=== PATIENT | male | born 1960 | race American Indian/Alaskan Native ===

== ENCOUNTER 2019-10-04 01:20 | Emergency (ER) | payer SELFPAY ==
[2019-10-04 03:35] LABS: Bilirubin,Urine NEG (Negative); Blood,Urine NEG (Negative); Color,Urine Yellow (Yellow); Mucus,Urine FEW /HPF; Protein,Urine <15 mg/dL mg/dL (Negative); Urobilinogen,Urine < 2.0 mg/dL (<2.0); WBC,Urine < 1.0 /HPF (0.0-6.0)
[2019-10-04 03:43] LABS: Amphetamine Screen,Urine PRESUMPTIVE NEGATIVE; Benzodiazepines Screen,Urine PRESUMPTIVE NEGATIVE; Cannabinoid Screen,Urine PRESUMPTIVE NEGATIVE; Methadone Screen,Urine PRESUMPTIVE NEGATIVE; Opiate Screen,Urine PRESUMPTIVE NEGATIVE
[2019-10-04 04:04] LABS: Cocaine Screen,Urine PRESUMPTIVE POSITIVE
[2019-10-04 04:15] LABS: Basophils # (Auto) 0.1 K/mm3 (0.0-0.1); Basophils % (Auto) 0.5 % (0.0-1.8); Eosinophils % (Auto) 0.1 % (0.0-4.3); Hematocrit 42.5 % (35.5-45.6); Hemoglobin 13.7 gm/dl (11.8-15.2); Lymphocytes # (Auto) 2.4 K/mm3 (1.2-5.4); Lymphocytes % (Auto) 21.9 % (13.4-35.0); Mean Corpuscular HGB Conc 32 % (32-34); Mean Corpuscular Volume 85 fl (84-94); Monocytes # (Auto) 0.7 K/mm3 (0.0-0.8); Monocytes % (Auto) 6.3 % (0.0-7.3); Platelet Count 273 K/mm3 (140-440); Red Blood Count 5.03 M/mm3 (3.65-5.03); Red Cell Distribution Width 15.1 % (13.2-15.2)
[2019-10-04 04:24] LABS: BUN/Creatinine Ratio 12; Blood Urea Nitrogen 12 mg/dL (9-20); Calcium 9.5 mg/dL (8.4-10.2); Hemolysis Index 12
--- NOTE | 2019-10-04 07:20 | Emergency Department Report ---
ED Psych HPI - General Chief Complaint: Medical Clearance Stated Complaint: MH EVALUATION Time Seen by Provider: 10/04/19 07:04 Source: patient Mode of arrival: Ambulatory - History of Present Illness Initial Comments: Patient is 59 years old male with history of bipolar disorder. Patient presented to the ER stating that he has been very depressed and having suicidal thoughts. Patient stated that he is going through a lot of stress since his is on oxygen at home and he is a caregiver for her. Patient stated also he is a many year at [employer]. Patient stated that he tried cocaine for the last 3 days. Patient stated that he is really thinking about killing himself cause of all the stress that he have now. Patient denied any homicidal ideation. Patient stated that he is hearing voices also asked him to kill himself. No visual hallucination. Patient placed on hold until assessed by mental health. MD Complaint: suicidal ideation, feels depressed -: days(s) (3) Associated Psychiatric Symptoms: depression, suicidal ideation, auditory hallucinations History of same: Yes Quality: constant Improves With: none Worsens With: none Context: recent alcohol abuse, recent drug abuse Associated Symptoms: denies other symptoms Treatments Prior to Arrival: none If Self Harm: admits thoughts of - Related Data Home Medications Medication Instructions Recorded Confirmed Last Taken No Known Home Medications [No 10/04/19 10/04/19 Unknown Reported Home Medications] Allergies Allergy/AdvReac Type Severity Reaction Status Date / Time No Known Allergies Allergy Unverified 10/04/19 02:35 ED Review of Systems ROS: Stated complaint: MH EVALUATION Other details as noted in HPI Comment: All other systems reviewed and negative Constitutional: denies: chills, fever Respiratory: denies: cough, shortness of breath, SOB with exertion Cardiovascular: denies: chest pain, palpitations Gastrointestinal: denies: abdominal pain, nausea, vomiting Musculoskeletal: denies: back pain Neurological: denies: headache, weakness, numbness, paresthesias, confusion, abnormal gait Psychiatric: depression, auditory hallucinations, suicidal thoughts. denies: visual hallucinations, homicidal thoughts ED Past Medical Hx - Past Medical History Previous Medical History?: No - Surgical History Past Surgical History?: No - Social History Smoking Status: Current Every Day Smoker Substance Use Type: Alcohol, Cocaine - Medications Home Medications: Home Medications Medication Instructions Recorded Confirmed Last Taken Type No Known Home Medications [No 10/04/19 10/04/19 Unknown History Reported Home Medications] ED Physical Exam - General Limitations: No Limitations General appearance: alert, in no apparent distress - Head Head exam: Present: atraumatic, normocephalic, normal inspection - Eye Eye exam: Present: normal appearance - ENT ENT exam: Present: normal exam, normal orophraynx, mucous membranes moist - Neck Neck exam: Present: normal inspection, full ROM. Absent: tenderness, meningi smus, lymphadenopathy, thyromegaly - Respiratory Respiratory exam: Present: normal lung sounds bilaterally - Cardiovascular Cardiovascular Exam: Present: regular rate, normal rhythm, normal heart sounds - GI/Abdominal GI/Abdominal exam: Present: soft, normal bowel sounds. Absent: distended, tenderness, guarding, rebound, rigid, organomegaly, mass, bruit, pulsatile mass, hernia - Extremities Exam Extremities exam: Present: normal inspection, full ROM, normal capillary refill. Absent: pedal edema, calf tenderness - Back Exam Back exam: Present: normal inspection, full ROM. Absent: tenderness, CVA tenderness (R), CVA tenderness (L), muscle spasm, paraspinal tenderness - Neurological Exam Neurological exam: Present: alert, oriented X3, CN II-XII intact, normal gait, reflexes normal - Psychiatric Psychiatric exam: Present: depressed, suicidal ideation. Absent: agitated, anxious, flat affect, manic, homicidal ideation - Skin Skin exam: Present: warm, intact, normal color ED Course Vital Signs 10/04/19 10/04/19 10/04/19 01:42 05:32 08:31 Temperature 97.4 F L 98.3 F Pulse Rate 109 H 92 H Respiratory 20 15 Rate Blood Pressure 116/81 Blood Pressure 113/80 [Left] O2 Sat by Pulse 96 99 100 Oximetry ED Medical Decision Making - Lab Data Result diagrams: 10/04/19 03:45 10/04/19 03:45 - Medical Decision Making Patient is 59 years old male with history of bipolar disorder. Patient presented to the ER stating that he has been very depressed and having suicidal thoughts. Patient stated that he is going through a lot of stress since his is on oxygen at home and he is a caregiver for her. Patient stated also he is a many year at [employer]. Patient stated that he tried cocaine for the last 3 days. Patient stated that he is really thinking about killing himself cause of all the stress that he have now. Patient denied any homicidal ideation. Patient stated that he is hearing voices also asked him to kill himself. No visual hallucination. Patient placed on hold until assessed by mental health. Patient has been assessed by our mental health team. Patient now is denying any suicidal ideation. Our psychiatric team advised that patient can be discharged and to follow up with his psychiatric doctor in the next 2-3 days. Patient given a proper referral. Critical care attestation.: If time is entered above; I have spent that time in minutes in the direct care of this critically ill patient, excluding procedure time. ED Disposition Clinical Impression: Suicidal ideation, Cocaine abuse, Depressed Disposition: DC-01 TO HOME OR SELFCARE Is pt being admited?: No Condition: Stable Instructions: Cocaine Abuse (ED), Suicide Prevention for Adults (ED) Referrals: PRIMARY CARE, [Primary Care Provider] - 3-5 Days
[2019-10-04 11:52] VITALS: BP 132/81
== END 2019-10-04 11:51 | disposition home or self-care (01) ==
LOC: ED 01:20
DX: F31.9 Bipolar disorder, unspecified (principal); F32.9 Major depressive disorder, single episode, unspecified; R45.851 Suicidal ideations; F14.10 Cocaine abuse, uncomplicated; R44.0 Auditory hallucinations; F17.200 Nicotine dependence, unspecified, uncomplicated
CPT/HCPCS: 36415; 80048; 80307; 80320; 81001; 85025; G0480

== ENCOUNTER 2021-01-28 21:40 | Inpatient (IN) | payer OTHER, SELFPAY ==
[2021-01-28] MEDS ORDERED: SODIUM CHLORIDE 0.9% 1000 ML 1,000 ML IV ONE (22:14)
[2021-01-28] MEDS ORDERED: ONDANSETRON 4 MG/2 ML INJ IV ONE (22:14)
--- NOTE | 2021-01-28 22:18 | Emergency Department Report ---
HPI - General Chief Complaint: Abdominal Pain Time Seen by Provider: 01/28/21 22:06 - HPI HPI: This is a 60-year-old male who presents to the emergency department via EMS from home with complaint of some abdominal pain, nausea and vomiting and the patient is positive for COVID-19. He was diagnosed with COVID-19 about 6 days ago. He says that his current symptoms have been going on for the past 3 to 4 days. Once the patient arrived to the emergency department he began vomiting and then appears to have passed out onto the ground. At the time of my examination, just after this occurred, the patient is awake, alert and oriented. After having an episode of passing out, the patient said that he was having some generalized chest discomfort on top of the aforementioned symptoms. Patient denies any past medical history. It appears that he has been here previously for psychiatric issues and had some history of cocaine abuse at that time. Patient denies any current alcohol use or illicit drug use. He is a daily tobacco smoker although he says he only smokes 2 to 3 cigarettes/day. He has not taken anything for his current symptoms prior to presentation today. No recent travel. He says that his is currently admitted to this hospital for a COVID-19 infection. ED Past Medical Hx - Social History Smoking Status: Current Every Day Smoker Substance Use Type: Alcohol, Cocaine - Medications Home Medications: Home Medications Medication Instructions Recorded Confirmed Last Taken Type No Known Home Medications [No 10/04/19 10/04/19 Unknown History Reported Home Medications] ED Review of Systems ROS: Stated complaint: NAUSEA Other details as noted in HPI Comment: All other systems reviewed and negative Constitutional: weakness. denies: chills Eyes: denies: eye pain, vision change ENT: denies: ear pain, throat pain Respiratory: denies: cough, wheezing Cardiovascular: chest pain, syncope Gastrointestinal: abdominal pain, nausea, vomiting Genitourinary: denies: dysuria, discharge Musculoskeletal: myalgia. denies: joint swelling Skin: denies: rash, lesions Neurological: denies: numbness, paresthesias Physical Exam - Physical Exam Physical Exam: GENERAL: The patient is well-developed well-nourished. HENT: Normocephalic. Atraumatic. Patient has moist mucous membranes. EYES: Extraocular motions are intact. Pupils equal reactive to light bilaterally. NECK: Supple. Trachea is midline. CHEST/LUNGS: Rhonchi heard bilaterally. There is some tachypnea but no accessory muscle use. HEART/CARDIOVASCULAR: Regular. There is no tachycardia. There is no murmur. ABDOMEN: Abdomen is soft. Generalized abdominal tenderness to palpation. No guarding. Patient has normal bowel sounds. There is no abdominal distention. SKIN: Skin is warm and dry. NEURO: The patient is awake, alert, and oriented. The patient is cooperative. The patient has no focal neurologic deficits. Normal speech. MUSCULOSKELETAL: There is no tenderness or deformity. There is no limitation range of motion. ED Medical Decision Making - Lab Data Result diagrams: 01/28/21 22:26 01/28/21 22:26 Lab Results 01/28/21 01/28/21 01/28/21 Range/Units 22:26 22:26 22:26 WBC 6.7 (4.5-11.0) K/mm3 RBC 5.66 H (3.65-5.03) M/mm3 Hgb 15.3 H (11.8-15.2) gm/dl Hct 46.5 H (35.5-45.6) % MCV 82 L (84-94) fl MCH 27 L (28-32) pg MCHC 33 (32-34) % RDW 15.1 (13.2-15.2) % Plt Count 241 (140-440) K/mm3 Lymph % (Auto) 14.6 (13.4-35.0) % Canadian % (Auto) 9.1 H (0.0-7.3) % Eos % (Auto) 0.0 (0.0-4.3) % Baso % (Auto) 0.1 (0.0-1.8) % Lymph # (Auto) 1.0 L (1.2-5.4) K/mm3 Canadian # (Auto) 0.6 (0.0-0.8) K/mm3 Eos # (Auto) 0.0 (0.0-0.4) K/mm3 Baso # (Auto) 0.0 (0.0-0.1) K/mm3 Seg Neutrophils % 76.2 H (40.0-70.0) % Seg Neutrophils # 5.1 (1.8-7.7) K/mm3 D-Dimer 468.53 H (0-234) ng/mlDDU Sodium 138 (137-145) mmol/L Potassium 3.9 (3.6-5.0) mmol/L Chloride 97.1 L (98-107) mmol/L Carbon Dioxide 31 H (22-30) mmol/L Anion Gap 14 mmol/L BUN 11 (9-20) mg/dL Creatinine 1.1 (0.8-1.3) mg/dL Estimated GFR > 60 ml/min BUN/Creatinine Ratio 10 % Glucose 98 (75-100) mg/dL Calcium 8.6 (8.4-10.2) mg/dL Ferritin (30.0-300.0) ng/mL Total Bilirubin 0.30 (0.1-1.2) mg/dL AST 24 (5-40) units/L ALT 23 (7-56) units/L Alkaline Phosphatase 84 (35-129) units/L Lactate Dehydrogenase (91-180) units/L Troponin T < 0.010 (0.00-0.029) ng/mL C-Reactive Protein (0.00-1.30) mg/dL Total Protein 7.1 (6.3-8.2) g/dL Albumin 3.8 L (3.9-5) g/dL Albumin/Globulin Ratio 1.2 % Lipase 14 (13-60) units/L Urine Color (Yellow) Urine Turbidity (Clear) Urine pH (5.0-7.0) Ur Specific Peyton (1.003-1.030) Urine Protein (Negative) mg/dL Urine Glucose (UA) (Negative) mg/dL Urine Ketones (Negative) mg/dL Urine Blood (Negative) Urine Nitrite (Negative) Urine Bilirubin (Negative) Urine Urobilinogen (<2.0) mg/dL Ur Leukocyte Esterase (Negative) Urine WBC (Auto) (0.0-6.0) /HPF Urine RBC (Auto) (0.0-6.0) /HPF Urine Mucus /HPF 01/29/21 01/29/21 01/29/21 Range/Units 00:09 00:09 00:09 WBC (4.5-11.0) K/mm3 RBC (3.65-5.03) M/mm3 Hgb (11.8-15.2) gm/dl Hct (35.5-45.6) % MCV (84-94) fl MCH (28-32) pg MCHC (32-34) % RDW (13.2-15.2) % Plt Count (140-440) K/mm3 Lymph % (Auto) (13.4-35.0) % Canadian % (Auto) (0.0-7.3) % Eos % (Auto) (0.0-4.3) % Baso % (Auto) (0.0-1.8) % Lymph # (Auto) (1.2-5.4) K/mm3 Canadian # (Auto) (0.0-0.8) K/mm3 Eos # (Auto) (0.0-0.4) K/mm3 Baso # (Auto) (0.0-0.1) K/mm3 Seg Neutrophils % (40.0-70.0) % Seg Neutrophils # (1.8-7.7) K/mm3 D-Dimer 135.00 (0-234) ng/mlDDU Sodium (137-145) mmol/L Potassium (3.6-5.0) mmol/L Chloride (98-107) mmol/L Carbon Dioxide (22-30) mmol/L Anion Gap mmol/L BUN (9-20) mg/dL Creatinine (0.8-1.3) mg/dL Estimated GFR ml/min BUN/Creatinine Ratio % Glucose (75-100) mg/dL Calcium (8.4-10.2) mg/dL Ferritin 809.3 H (30.0-300.0) ng/mL Total Bilirubin (0.1-1.2) mg/dL AST (5-40) units/L ALT (7-56) units/L Alkaline Phosphatase (35-129) units/L Lactate Dehydrogenase 351 H (91-180) units/L Troponin T (0.00-0.029) ng/mL C-Reactive Protein 3.40 H (0.00-1.30) mg/dL Total Protein (6.3-8.2) g/dL Albumin (3.9-5) g/dL Albumin/Globulin Ratio % Lipase (13-60) units/L Urine Color (Yellow) Urine Turbidity (Clear) Urine pH (5.0-7.0) Ur Specific Peyton (1.003-1.030) Urine Protein (Negative) mg/dL Urine Glucose (UA) (Negative) mg/dL Urine Ketones (Negative) mg/dL Urine Blood (Negative) Urine Nitrite (Negative) Urine Bilirubin (Negative) Urine Urobilinogen (<2.0) mg/dL Ur Leukocyte Esterase (Negative) Urine WBC (Auto) (0.0-6.0) /HPF Urine RBC (Auto) (0.0-6.0) /HPF Urine Mucus /HPF 01/29/21 01/29/21 Range/Units 01:15 01:30 WBC (4.5-11.0) K/mm3 RBC (3.65-5.03) M/mm3 Hgb (11.8-15.2) gm/dl Hct (35.5-45.6) % MCV (84-94) fl MCH (28-32) pg MCHC (32-34) % RDW (13.2-15.2) % Plt Count (140-440) K/mm3 Lymph % (Auto) (13.4-35.0) % Canadian % (Auto) (0.0-7.3) % Eos % (Auto) (0.0-4.3) % Baso % (Auto) (0.0-1.8) % Lymph # (Auto) (1.2-5.4) K/mm3 Canadian # (Auto) (0.0-0.8) K/mm3 Eos # (Auto) (0.0-0.4) K/mm3 Baso # (Auto) (0.0-0.1) K/mm3 Seg Neutrophils % (40.0-70.0) % Seg Neutrophils # (1.8-7.7) K/mm3 D-Dimer (0-234) ng/mlDDU Sodium (137-145) mmol/L Potassium (3.6-5.0) mmol/L Chloride (98-107) mmol/L Carbon Dioxide (22-30) mmol/L Anion Gap mmol/L BUN (9-20) mg/dL Creatinine (0.8-1.3) mg/dL Estimated GFR ml/min BUN/Creatinine Ratio % Glucose (75-100) mg/dL Calcium (8.4-10.2) mg/dL Ferritin (30.0-300.0) ng/mL Total Bilirubin (0.1-1.2) mg/dL AST (5-40) units/L ALT (7-56) units/L Alkaline Phosphatase (35-129) units/L Lactate Dehydrogenase (91-180) units/L Troponin T < 0.010 (0.00-0.029) ng/mL C-Reactive Protein (0.00-1.30) mg/dL Total Protein (6.3-8.2) g/dL Albumin (3.9-5) g/dL Albumin/Globulin Ratio % Lipase (13-60) units/L Urine Color Yellow (Yellow) Urine Turbidity Clear (Clear) Urine pH 6.0 (5.0-7.0) Ur Specific Peyton 1.034 H (1.003-1.030) Urine Protein 30 mg/dl (Negative) mg/dL Urine Glucose (UA) Neg (Negative) mg/dL Urine Ketones Tr (Negative) mg/dL Urine Blood Neg (Negative) Urine Nitrite Neg (Negative) Urine Bilirubin Neg (Negative) Urine Urobilinogen < 2.0 (<2.0) mg/dL Ur Leukocyte Esterase Neg (Negative) Urine WBC (Auto) 1.0 (0.0-6.0) /HPF Urine RBC (Auto) 1.0 (0.0-6.0) /HPF Urine Mucus 2+ /HPF - EKG Data -: EKG Interpreted by [facility] EKG shows normal: sinus rhythm, axis, intervals, QRS complexes, ST-T waves Rate: normal - EKG Data When compared to previous EKG there are: previous EKG unavailable Interpretation: normal EKG - Radiology Data Radiology results: report reviewed ACUTE ABDOMEN SERIES INDICATION / CLINICAL INFORMATION: Abd pain. COMPARISON: None available. FINDINGS: Bowel gas pattern is nonspecific, not indicative of obstruction. Gas-filled and very mildly distended small bowel suggests some degree of ileus. No free air. Accompanying chest radiograph shows patchy parenchymal disease in both lungs, very suggestive of Covid pneumonia. CT abdomen pelvis w con INDICATION: Pt complains of "Generalized" abd pain, abnormal X-ray.. TECHNIQUE: All CT scans at this location are performed using CT dose reduction for ALARA by means of automated exposure control. COMPARISON: None available. FINDINGS: Viral pneumonia in both lung bases. Liver, gallbladder, spleen, pancreas, kidneys and adrenals are negative. Abdominal aorta is normal in size. No adenopathy. Incidental uncomplicated umbilical hernia. Pelvis Normal appendix. Sigmoid diverticulosis with no evidence of dive rticulitis. Urinary bladder and distal ureters are negative. Degenerative changes in the lower lumbar spine, but no acute skeletal lesions. IMPRESSION: 1. No acute abnormality in the abdomen/pelvis. CT angio chest INDICATION: Patient complains of chest pain, elevated D-dimer. TECHNIQUE: All CT scans at this location are performed using CT dose reduction for ALARA by means of automated exposure control. 3 plane MIP and 3-D reconstructions were produced. COMPARISON: None available. FINDINGS: Mediastinum, eddie and axillae are negative. Patchy parenchymal disease is demonstrated throughout both lungs, suggesting viral pneumonia. No pleural fluid. No evidence of pulmonary embolus. IMPRESSION: 1. Moderate viral pneumonia. 2. Negative for pulmonary embolus. - Medical Decision Making This patient presents to the emergency department with a complaint of abdominal pain, nausea and vomiting. Upon arrival he had what seems to be a vasovagal syncopal episode while vomiting. However, after that the patient started complaining of chest pain and shortness of breath. He was found to be positive for COVID-19 about 6 days ago. Abdominal x-ray shows some nonspecific bowel gas. Chest x-ray shows patchy bilateral infiltrates consistent with a viral or atypical pneumonia. Patient had a CT angiography of the chest secondary to elevated D-dimer level that once again shows viral pneumonia without evidence of pulmonary embolism. CT of the abdomen and pelvis with IV contrast does not show any acute process. The patient's labs are mostly consistent with a COVID-19 infection. There are elevated inflammatory markers such as D-dimer, LDH, CRP and ferritin. Patient has been given IV fluid resuscitation, IV antiemetics, Decadron and IV antibiotics. The patient's oxygen saturation went down to about 91% on room air. He will be admitted to the hospital for further evaluation and treatment and was accepted for admission by the hospitalist, Dr. Skinner. Critical care attestation.: If time is entered above; I have spent that time in minutes in the direct care of this critically ill patient, excluding procedure time. ED Disposition Clinical Impression: Pneumonia due to COVID-19 virus, Suspected 2019 novel coronavirus infection Abdominal pain Qualifiers: Abdominal location: generalized Qualified Code(s): R10.84 - Generalized abdominal pain Chest pain Qualifiers: Chest pain type: unspecified Qualified Code(s): R07.9 - Chest pain, unspecified Disposition: DC-09 OP ADMIT IP TO THIS HOSP Is pt being admited?: Yes Condition: Stable Time of Disposition: 01:35
--- NOTE | 2021-01-28 22:43 | XRay Report ---
ACUTE ABDOMEN SERIES INDICATION / CLINICAL INFORMATION: Abd pain. COMPARISON: None available. FINDINGS: Bowel gas pattern is nonspecific, not indicative of obstruction. Gas-filled and very mildly distended small bowel suggests some degree of ileus. No free air. Accompanying chest radiograph shows patchy parenchymal disease in both lungs, very suggestive of Covi d pneumonia. Signer Name: Henrry Judd MD Signed: 01/28/2021 10:38 PM Workstation Name: [id number]
[2021-01-28 22:58] LABS: Basophils % (Auto) 0.1 % (0.0-1.8); Hematocrit 46.5 % (35.5-45.6); Hemoglobin 15.3 gm/dl (11.8-15.2); Lymphocytes % (Auto) 14.6 % (13.4-35.0); Mean Corpuscular HGB Conc 33 % (32-34); Mean Corpuscular Volume 82 fl (84-94); Monocytes # (Auto) 0.6 K/mm3 (0.0-0.8); Monocytes % (Auto) 9.1 % (0.0-7.3); Platelet Count 241 K/mm3 (140-440); Red Blood Count 5.66 M/mm3 (3.65-5.03); Red Cell Distribution Width 15.1 % (13.2-15.2)
[2021-01-28 23:26] LABS: Alanine Aminotransferase 23 units/L (7-56); Albumin 3.8 g/dL (3.9-5); BUN/Creatinine Ratio 10; Blood Urea Nitrogen 11 mg/dL (9-20); Calcium 8.6 mg/dL (8.4-10.2); Hemolysis Index 3
[2021-01-29] MEDS ORDERED: cefTRIAXone/NS 1 GM/50 ML 1 GM/50 ML BAG IV ONE (01:04)
[2021-01-29] MEDS ORDERED: dexAMETHasone 4 MG/ML VIAL IV ONE (01:04)
[2021-01-29] MEDS ORDERED: AZITHROMYCIN/NS 500 MG/250 ML 500 MG/250 ML BAG IV ONE (01:04)
[2021-01-29] MEDS ORDERED: ACETAMINOPHEN 325 MG TAB PO ONE (01:17)
--- NOTE | 2021-01-29 01:22 | Cat Scan Report ---
CT angio chest INDICATION: Patient complains of chest pain, elevated D-dimer. TECHNIQUE: All CT scans at this location are performed using CT dose reduction for ALARA by means of automated e xposure control. 3 plane MIP and 3-D reconstructions were produced. COMPARISON: None available. FINDINGS: Mediastinum, eddie and axillae are negative. Patchy parenchymal disease is demonstrated throughout bot h lungs, suggesting viral pneumonia. No pleural fluid. No evidence of pulmonary embolus. IMPRESSION: 1. Moderate viral pneumonia. 2. Negative for pulmonary embolus. Signer Name: Henrry Judd MD Signed: 01/29/2021 1:18 AM Workstation Name: [id number]
--- NOTE | 2021-01-29 01:24 | Cat Scan Report ---
CT abdomen pelvis w con INDICATION: Pt complains of "Generalized" abd pain, abnormal X-ray.. TECHNIQUE: All CT scans at this location are performed using CT dose reduction for ALARA by means of automated e xposure control. COMPARISON: None available. FINDINGS: Viral pneumonia in both lung bases. Liver, gallbladder, spleen, pancreas, kidneys and adrenals are ne gative. Abdominal aorta is normal in size. No adenopathy. Incidental uncomplicated umbilical hernia. Pelvis Normal appendix. Sigmoid diverticulosis with no evidence of diverticulitis. Urinary bladder and dista l ureters are negative. Degenerative changes in the lower lumbar spine, but no acute skeletal lesions. IMPRESSION: 1. No acute abnormality in the abdomen/pelvis. Signer Name: Henrry Judd MD Signed: 01/29/2021 1:20 AM Workstation Name: [id number]
[2021-01-29] MEDS ORDERED: ACETAMINOPHEN 325 MG TAB PO PRN (01:53)
[2021-01-29] MEDS ORDERED: MAGNESIUM HYDROXIDE (MOM) ORAL LIQD UDC PO PRN (01:53)
--- NOTE | 2021-01-29 02:03 | History and Physical Report ---
History of Present Illness Date of examination: 01/29/21 Date of admission: 01/29/21 01:35 Chief complaint: Nausea and Vomiting Abdominal pain History of present illness: 30-year-old male presenting to the emergency room today complaining of nausea vomiting with associated abdominal pain. He was COVID-19 positive less than a week ago. He denies any fever, no chills, no chest pain or shortness of breath. No headache or dizziness. Patient denies any sick contacts and no recent travel. Upon arrival in the emergency room patient was said to have had a near syncopal episode but subsequently became more alert and oriented. He however was mildly hypoxic with oxygen saturation of 91% on room air upon arrival. Work-up in the emergency room, findings on CT angiogram of the chest was compatible with viral pneumonia. Patient admitted for COVID-19 pneumonia. Past History Past Medical History: No medical history Past Surgical History: No surgical history Social history: smoking (Current daily smoker), alcohol abuse, other (Cocaine abuse) Family history: no significant family history Medications and Allergies Allergies Allergy/AdvReac Type Severity Reaction Status Date / Time No Known Allergies Allergy Verified 01/29/21 01:59 Home Medications Medication Instructions Recorded Confirmed Last Taken Type No Known Home Medications [No 10/04/19 10/04/19 Unknown History Reported Home Medications] Active Meds: Active Medications Acetaminophen (Acetaminophen 325 Mg Tab) 650 mg PO Q4H PRN PRN Reason: Pain MILD(1-3)/Fever >100.5/BECKER Sodium Chloride (Nacl 0.9% 1000 Ml) 1,000 mls @ 250 mls/hr IV ONCE ONE Stop: 01/29/21 02:13 Last Admin: 01/28/21 22:43 Dose: 250 mls/hr Documented by: Azithromycin (Zithromax/Ns) 500 mg in 250 mls @ 250 mls/hr IV ONCE ONE; Protocol Stop: 01/29/21 02:03 Last Admin: 01/29/21 01:35 Dose: 250 mls/hr Documented by: Ceftriaxone Sodium (Rocephin/Ns 2 Gm/100 Ml) 2 gm in 100 mls @ 200 mls/hr IV Q24H TAMMY; Protocol Azithromycin (Zithromax/Ns) 500 mg in 250 mls @ 250 mls/hr IV Q24H TAMMY; Protocol Magnesium Hydroxide (Magnesium Hydroxide (Mom) Oral Liqd Udc) 30 ml PO Q4H PRN PRN Reason: Constipation Ondansetron HCl (Ondansetron 4 Mg/2 Ml Inj) 4 mg IV Q8H PRN PRN Reason: Nausea And Vomiting Sodium Chloride (Sodium Chloride 0.9% 10 Ml Flush Syringe) 10 ml IV BID TAMMY Sodium Chloride (Sodium Chloride 0.9% 10 Ml Flush Syringe) 10 ml IV PRN PRN PRN Reason: LINE FLUSH Review of Systems Constitutional: no fever, no chills Ears, nose, mouth and throat: no nasal congestion, no sore throat Cardiovascular: no chest pain, no orthopnea, no palpitations Respiratory: cough, shortness of breath Gastrointestinal: abdominal pain, nausea, vomiting, no diarrhea, no constipation, no melena Genitourinary Male: no dysuria, no hematuria, no flank pain, no nocturia Musculoskeletal: no neck pain, no low back pain Integumentary: no rash, no pruritis Neurological: no headaches, no confusion Psychiatric: no anxiety, no depression Exam - Constitutional Vitals: Temp Pulse Resp BP Pulse Ox 101.5 F H 94 H 24 129/83 95 01/29/21 01:20 01/29/21 01:15 01/29/21 01:15 01/29/21 01:15 01/29/21 01:15 General appearance: Present: no acute distress, well-nourished - EENT Eyes: Present: PERRL, EOM intact. Absent: scleral icterus ENT: hearing intact, clear oral mucosa, dentition normal - Neck Neck: Present: supple, normal ROM - Respiratory Respiratory effort: normal Respiratory: bilateral: diminished - Cardiovascular Rhythm: regular Heart Sounds: Present: S1 & S2. Absent: gallop, systolic murmur, diastolic murmur, rub, click - Extremities Extremities: no ischemia, pulses intact, pulses symmetrical, No edema, normal temperature, normal color, Full ROM Peripheral Pulses: within normal limits - Abdominal General gastrointestinal: Present: soft, non-tender, non-distended, normal bowel sounds. Absent: mass - Integumentary Integumentary: Present: clear, warm, dry. Absent: rash - Musculoskeletal Musculoskeletal: strength equal bilaterally - Psychiatric Psychiatric: appropriate mood/affect, intact judgment & insight, memory intact, cooperative - Neurologic Neurologic: CNII-XII intact, no focal deficits, moves all extremities HEART Score - HEART Score Troponin: Troponin T < 0.010 ng/mL (0.00-0.029) 01/29/21 01:15 Results - Labs CBC & Chem 7: 01/28/21 22:26 01/28/21 22:26 Labs: Abnormal lab results 01/28/21 01/28/21 01/28/21 Range/Units 22:26 22:26 22:26 RBC 5.66 H (3.65-5.03) M/mm3 Hgb 15.3 H (11.8-15.2) gm/dl Hct 46.5 H (35.5-45.6) % MCV 82 L (84-94) fl MCH 27 L (28-32) pg [place] % (Auto) 9.1 H (0.0-7.3) % Lymph # (Auto) 1.0 L (1.2-5.4) K/mm3 Seg Neutrophils % 76.2 H (40.0-70.0) % D-Dimer 468.53 H (0-234) ng/mlDDU Chloride 97.1 L (98-107) mmol/L Carbon Dioxide 31 H (22-30) mmol/L Albumin 3.8 L (3.9-5) g/dL Assessment and Plan - Patient Problems (1) Pneumonia due to COVID-19 virus Current Visit: Yes Status: Acute Plan to address problem: Patient admitted and placed on isolation precautions. He has been started on IV antibiotics and IV steroid. We will place consult to infectious disease for evaluation. (2) Abdominal pain Current Visit: Yes Status: Acute Qualifiers: Abdominal location: generalized Qualified Code(s): R10.84 - Generalized abdominal pain Plan to address problem: Possibly secondary to the nausea vomiting. CT of the abdomen and pelvis was unremarkable. (3) DVT prophylaxis Current Visit: Yes Status: Acute Plan to address problem: Patient placed on subcutaneous Lovenox. (4) Full code status Current Visit: Yes Status: Acute
[2021-01-29 02:20] LABS: Bilirubin,Urine NEG (Negative); Blood,Urine NEG (Negative); Color,Urine Yellow (Yellow); Mucus,Urine 2+ /HPF; Urobilinogen,Urine < 2.0 mg/dL (<2.0)
[2021-01-29 03:15] LABS: C-Reactive Protein 3.4 mg/dL (0.00-1.30)
--- NOTE | 2021-01-29 09:25 | Progress Note ---
Assessment and Plan Assessment and plan: #Nausea and vomiting Likely from viral infection CT abdomen and pelvis negative for any inflammatory changes but shows possible ileus. Will repeat abdominal xray in AM Monitor electrolytes Continue Zofran as needed #Pneumonia due to COVID-19 Continue antibiotics and steroids ID consulted Not a candidate for remdesivir Trend inflammatory markers Needs a walk test #DVT prophylaxis-Lovenox Disposition - Walk test ordered. Repeat xr abdomen in AM. Possible DC tomorrow History Interval history: 30-year-old male presenting to the emergency room today complaining of nausea vomiting with associated abdominal pain. He was COVID-19 positive less than a week ago. He denies any fever, no chills, no chest pain or shortness of breath. No headache or dizziness. Patient denies any sick contacts and no recent travel. Upon arrival in the emergency room patient was said to have had a near syncopal episode but subsequently became more alert and oriented. He however was mildly hypoxic with oxygen saturation of 91% on room air upon arrival. Work-up in the emergency room, findings on CT angiogram of the chest was compatible with viral pneumonia. Patient admitted for COVID-19 pneumonia. Hospital course 01/29. Complains of nausea. Started him on zofran. His abdominal xray shows mild ileus. Electrolytes are ok. He is on antibiotics and steroids for COVID-19 PNA. Hospitalist Physical - Physical exam Narrative exam: VITAL SIGNS: Reviewed. GENERAL: Awake HEAD: No signs of head trauma. EYES: Pupils are equal. Extraocular motions intact. MOUTH: Oropharynx is normal. NECK: No adenopathy, no JVD. CHEST: Chest with diminished breath sounds bilaterally. No wheezes, rales, or rhonchi. CARDIAC: normal S1 and S2, without murmurs, gallops, or rubs. ABDOMEN: Soft, non tender and non distended. No rebound or guarding, and no masses palpated. Bowel Sounds normal. MUSCULOSKELETAL: No edema NEUROLOGIC EXAM: Alert and oriented x3. No focal neurologic deficits SKIN: No obvious lesions - Constitutional Vitals: Temp Pulse Resp BP Pulse Ox 99.3 F 80 18 114/76 95 01/29/21 02:00 01/29/21 07:25 01/29/21 07:25 01/29/21 07:25 01/29/21 07:25 HEART Score - HEART Score Troponin: Troponin T < 0.010 ng/mL (0.00-0.029) 01/29/21 01:15 Results - Labs CBC & Chem 7: 01/28/21 22:26 01/28/21 22: Labs: Laboratory Last Values WBC 6.7 K/mm3 (4.5-11.0) 01/28/21 22: RBC 5.66 M/mm3 (3.65-5.03) H 01/28/21 22: Hgb 15.3 gm/dl (11.8-15.2) H 01/28/21 22: Hct 46.5 % (35.5-45.6) H 01/28/21 22: MCV 82 fl (84-94) L 01/28/21 22: MCH 27 pg (28-32) L 01/28/21 22: MCHC 33 % (32-34) 01/28/21 22: RDW 15.1 % (13.2-15.2) 01/28/21 22: Plt Count 241 K/mm3 (140-440) 01/28/21 22: Lymph % (Auto) 14.6 % (13.4-35.0) 01/28/21 22: [facility] % (Auto) 9.1 % (0.0-7.3) H 01/28/21 22: Eos % (Auto) 0.0 % (0.0-4.3) 01/28/21 22: Baso % (Auto) 0.1 % (0.0-1.8) 01/28/21 22: Lymph # (Auto) 1.0 K/mm3 (1.2-5.4) L 01/28/21 22: [facility] # (Auto) 0.6 K/mm3 (0.0-0.8) 01/28/21 22: Eos # (Auto) 0.0 K/mm3 (0.0-0.4) 01/28/21 22: Baso # (Auto) 0.0 K/mm3 (0.0-0.1) 01/28/21 22: Seg Neutrophils % 76.2 % (40.0-70.0) H 01/28/21 22: Seg Neutrophils # 5.1 K/mm3 (1.8-7.7) 01/28/21 22:26 D-Dimer 135.00 ng/mlDDU (0-234) 01/29/21 00:09 Sodium 138 mmol/L (137-145) 01/28/21 22:26 Potassium 3.9 mmol/L (3.6-5.0) 01/28/21 22:26 Chloride 97.1 mmol/L (98-107) L 01/28/21 22:26 Carbon Dioxide 31 mmol/L (22-30) H 01/28/21 22:26 Anion Gap 14 mmol/L 01/28/21 22:26 BUN 11 mg/dL (9-20) 01/28/21 22:26 Creatinine 1.1 mg/dL (0.8-1.3) 01/28/21 22:26 Estimated GFR > 60 ml/min 01/28/21 22:26 BUN/Creatinine Ratio 10 % 01/28/21 22:26 Glucose 98 mg/dL (75-100) 01/28/21 22:26 Calcium 8.6 mg/dL (8.4-10.2) 01/28/21 22:26 Ferritin 809.3 ng/mL (30.0-300.0) H 01/29/21 00:09 Total Bilirubin 0.30 mg/dL (0.1-1.2) 01/28/21 22:26 AST 24 units/L (5-40) 01/28/21 22:26 ALT 23 units/L (7-56) 01/28/21 22:26 Alkaline Phosphatase 84 units/L (35-129) 01/28/21 22:26 Lactate Dehydrogenase 351 units/L (91-180) H 01/29/21 00:09 Troponin T < 0.010 ng/mL (0.00-0.029) 01/29/21 01:15 C-Reactive Protein 3.40 mg/dL (0.00-1.30) H 01/29/21 00:09 Total Protein 7.1 g/dL (6.3-8.2) 01/28/21 22:26 Albumin 3.8 g/dL (3.9-5) L 01/28/21 22:26 Albumin/Globulin Ratio 1.2 % 01/28/21 22:26 Lipase 14 units/L (13-60) 01/28/21 22:26 Urine Color Yellow (Yellow) 01/29/21 01:30 Urine Turbidity Clear (Clear) 01/29/21 01:30 Urine pH 6.0 (5.0-7.0) 01/29/21 01:30 Ur Specific [place] 1.034 (1.003-1.030) H 01/29/21 01:30 Urine Protein 30 mg/dl mg/dL (Negative) 01/29/21 01:30 Urine Glucose (UA) Neg mg/dL (Negative) 01/29/21 01:30 Urine Ketones Tr mg/dL (Negative) 01/29/21 01:30 Urine Blood Neg (Negative) 01/29/21 01:30 Urine Nitrite Neg (Negative) 01/29/21 01:30 Urine Bilirubin Neg (Negative) 01/29/21 01:30 Urine Urobilinogen < 2.0 mg/dL (<2.0) 01/29/21 01:30 Ur Leukocyte Esterase Neg (Negative) 01/29/21 01:30 Urine WBC (Auto) 1.0 /HPF (0.0-6.0) 01/29/21 01:30 Urine RBC (Auto) 1.0 /HPF (0.0-6.0) 01/29/21 01:30 Urine Mucus 2+ /HPF 01/29/21 01:30 Active Medications - Current Medications Current Medications: Generic Name Dose Route Start Last Admin Trade Name Freq PRN Reason Stop Dose Admin Acetaminophen 650 mg 01/29/21 01:53 Acetaminophen 325 Mg Tab PO Q4H PRN Pain MILD(1-3)/Fever >100.5/BECKER Dexamethasone 6 mg 01/29/21 22:00 Dexamethasone 4 Mg/Ml Vial IV Q24H [facility] Enoxaparin Sodium 40 mg 01/29/21 22:00 Enoxaparin 40 Mg/0.4 Ml Inj SUB-Q QDAY@2200 [facility] Protocol Ceftriaxone Sodium 2 gm in 100 mls @ 200 mls/hr 01/29/21 22:00 Rocephin/Ns 2 Gm/100 Ml IV Q24H [facility] Protocol Azithromycin 500 mg in 250 mls @ 250 mls/hr 01/29/21 22:00 Zithromax/Ns IV Q24H [facility] Protocol Magnesium Hydroxide 30 ml 01/29/21 01:53 Magnesium Hydroxide (Mom) Oral Liqd Udc PO Q4H PRN Constipation Ondansetron HCl 4 mg 01/29/21 01:53 Ondansetron 4 Mg/2 Ml Inj IV Q8H PRN Nausea And Vomiting Sodium Chloride 10 ml 01/29/21 10:00 01/29/21 09:18 Sodium Chloride 0.9% 10 Ml Flush Syringe IV 10 ml BID TAMMY Administration Sodium Chloride 10 ml 01/29/21 01:53 Sodium Chloride 0.9% 10 Ml Flush Syringe IV PRN PRN LINE FLUSH
--- NOTE | 2021-01-29 12:48 | Consultation ---
History of Present Illness - Reason for Consult Consult date: 01/29/21 COVID-19 Requesting physician: KLAUS PAUL - History of Present Illness The patient is a 60-year-old male admitted to the hospital with abdominal pain, nausea, vomiting along with worsening shortness of breath. He had been diagnosed with COVID-19 6 days prior to admission. Upon evaluation, had a fever of 101.5 F on admission. He was initially 91% on room air and is currently up to 95% on room air. Infectious diseases was consulted for additional evaluation. Labs reviewed, WBC normal, D-dimer today is 135, ferritin 809, LDH 351, CRP 3.4. Review of Systems: reviewed in the chart, unable to obtain, minimize risk of transmission Past History Past Medical History: No medical history Past Surgical History: No surgical history Social history: smoking (Current daily smoker), alcohol abuse, other (Cocaine abuse) Family history: no significant family history Medications and Allergies Allergies Allergy/AdvReac Type Severity Reaction Status Date / Time No Known Allergies Allergy Verified 01/29/21 01:59 Home Medications Medication Instructions Recorded Confirmed Last Taken Type No Known Home Medications [No 10/04/19 10/04/19 Unknown History Reported Home Medications] Active Meds: Active Medications Acetaminophen (Acetaminophen 325 Mg Tab) 650 mg PO Q4H PRN PRN Reason: Pain MILD(1-3)/Fever >100.5/BECKER Dexamethasone (Dexamethasone 4 Mg/Ml Vial) 6 mg IV Q24H TAMMY Enoxaparin Sodium (Enoxaparin 40 Mg/0.4 Ml Inj) 40 mg SUB-Q QDAY@2200 TAMMY; Protocol Ceftriaxone Sodium (Rocephin/Ns 2 Gm/100 Ml) 2 gm in 100 mls @ 200 mls/hr IV Q24H TAMMY; Protocol Azithromycin (Zithromax/Ns) 500 mg in 250 mls @ 250 mls/hr IV Q24H TAMMY; Protocol Magnesium Hydroxide (Magnesium Hydroxide (Mom) Oral Liqd Udc) 30 ml PO Q4H PRN PRN Reason: Constipation Ondansetron HCl (Ondansetron 4 Mg/2 Ml Inj) 4 mg IV Q8H PRN PRN Reason: Nausea And Vomiting Sodium Chloride (Sodium Chloride 0.9% 10 Ml Flush Syringe) 10 ml IV BID TAMMY Last Admin: 01/29/21 09:18 Dose: 10 ml Documented by: Sodium Chloride (Sodium Chloride 0.9% 10 Ml Flush Syringe) 10 ml IV PRN PRN PRN Reason: LINE FLUSH Physical Examination - Physical Exam Narrative exam: Physical Exam (reviewed in chart to minimize risk of transmission) Constitutional: deferred Head, Ears, Nose: deferred Eyes: deferred Neck: deferred Oral: deferred Cardiovascular: deferred Respiratory: deferred GI: deferred Musculoskeletal: deferred Skin: deferred Hem/Lymphatic: deferred Psych: deferred Neurological: deferred - Constitutional Vitals: Vital Signs Temp Pulse Resp BP Pulse Ox 99.3 F 80 18 114/76 95 01/29/21 02:00 01/29/21 07:25 01/29/21 07:25 01/29/21 07:25 01/29/21 07:25 Temperature -Last 24 Hours Temperature 99.3 F Temperature 101.5 F Results - Labs CBC & Chem 7: 01/28/21 22:26 01/28/21 22:26 Labs: Abnormal lab results 01/28/21 01/28/21 01/28/21 Range/Units 22:26 22:26 22:26 RBC 5.66 H (3.65-5.03) M/mm3 Hgb 15.3 H (11.8-15.2) gm/dl Hct 46.5 H (35.5-45.6) % MCV 82 L (84-94) fl MCH 27 L (28-32) pg [place] % (Auto) 9.1 H (0.0-7.3) % Lymph # (Auto) 1.0 L (1.2-5.4) K/mm3 Seg Neutrophils % 76.2 H (40.0-70.0) % D-Dimer 468.53 H (0-234) ng/mlDDU Chloride 97.1 L (98-107) mmol/L Carbon Dioxide 31 H (22-30) mmol/L Ferritin (30.0-300.0) ng/mL Lactate Dehydrogenase (91-180) units/L C-Reactive Protein (0.00-1.30) mg/dL Albumin 3.8 L (3.9-5) g/dL Ur Specific [place] (1.003-1.030) 01/29/21 01/29/21 01/29/21 Range/Units 00:09 00:09 01:30 RBC (3.65-5.03) M/mm3 Hgb (11.8-15.2) gm/dl Hct (35.5-45.6) % MCV (84-94) fl MCH (28-32) pg [place] % (Auto) (0.0-7.3) % Lymph # (Auto) (1.2-5.4) K/mm3 Seg Neutrophils % (40.0-70.0) % D-Dimer (0-234) ng/mlDDU Chloride (98-107) mmol/L Carbon Dioxide (22-30) mmol/L Ferritin 809.3 H (30.0-300.0) ng/mL Lactate Dehydrogenase 351 H (91-180) units/L C-Reactive Protein 3.40 H (0.00-1.30) mg/dL Albumin (3.9-5) g/dL Ur Specific [place] 1.034 H (1.003-1.030) - Imaging and Cardiology CT scan - chest: report reviewed, image reviewed (b/l patchy pneumonia) Assessment and Plan Cultures: SARS CoV2 PCR: Positive as outpatient A/P: 60/M with: #Bilateral pneumonia: Secondary to COVID-19. Patient is currently not hypoxic. Inflammatory markers moderately elevated. #Nausea, vomiting: Likely secondary to COVID-19. CT abdomen and pelvis was unremarkable for acute process. Recs: -Not hypoxic, does not meet criteria for remdesivir -Follow-up procalcitonin, if normal, can discontinue antibiotics -prophylactic anticoagulation based on d-dimer per hospital protocol -trend ferritin, LDH, d-dimer, CRP every 2-3 days for risk stratification and to assess disease progression -Ambulatory saturations, if clears, okay to discharge Abdias Costello MD, FACP [facility] O: [phone] F: [phone]
[2021-01-29] MEDS ORDERED: ALBUTEROL 2.5 MG/3 ML NEBU IH PRN (16:46)
[2021-01-29] MEDS: ONDANSETRON 4 MG/2 ML INJ IV PRN (18:40)
[2021-01-29] MEDS: oxyCODONE /ACETAMINOPHEN 5-325MG TAB PO PRN (20:48)
[2021-01-29] MEDS: BENZONATATE 100 MG CAP PO PRN (20:49)
[2021-01-29] MEDS ORDERED: BENZONATATE 100 MG CAP PO SCH (22:00)
[2021-01-29] MEDS ORDERED: dexAMETHasone 4 MG/ML VIAL IV SCH (22:00)
[2021-01-29] MEDS: ENOXAPARIN 40 MG/0.4 ML INJ SUB-Q SCH (22:09)
[2021-01-29] MEDS: cefTRIAXone/NS 2 GM/100 ML 2 GM/100 ML BAG IV SCH (22:09)
[2021-01-29] MEDS: AZITHROMYCIN/NS 500 MG/250 ML 500 MG/250 ML BAG IV SCH (22:10)
[2021-01-30 07:35] LABS: Basophils % (Auto) 0.1 % (0.0-1.8); Hematocrit 44.3 % (35.5-45.6); Hemoglobin 15.1 gm/dl (11.8-15.2); Lymphocytes # (Auto) 0.8 K/mm3 (1.2-5.4); Lymphocytes % (Auto) 14.4 % (13.4-35.0); Mean Corpuscular HGB Conc 34 % (32-34); Mean Corpuscular Volume 82 fl (84-94); Monocytes # (Auto) 0.4 K/mm3 (0.0-0.8); Monocytes % (Auto) 7.7 % (0.0-7.3); Platelet Count 288 K/mm3 (140-440); Red Blood Count 5.42 M/mm3 (3.65-5.03); Red Cell Distribution Width 15.1 % (13.2-15.2)
[2021-01-30 07:47] LABS: INR 0.96 (0.87-1.13)
[2021-01-30 07:50] LABS: BUN/Creatinine Ratio 14; Blood Urea Nitrogen 13 mg/dL (9-20); Hemolysis Index 4
--- NOTE | 2021-01-30 08:04 | Progress Note ---
Assessment and Plan Assessment and plan: COVID-19 positive for 01/29/2021 --Intractable nausea and vomiting Likely from viral infection Antiemetics IV fluids and Protonix 01/28/2021 CT abdomen and pelvis negative for any inflammatory changes but shows possible ileus. Rpt abdominal xray today, no acute abnormalities Continue supportive care, diastolic --Ileus on CT abdomen and pelvis; Probably the cause of nausea vomiting follow-up x-ray abdomen and pelvis negative for acute abnormality According to original plans patient may have been discharged today However patient is hypoxic requiring remdesivir which was started today by ID --COVID-19 infection; Follow COVID-19 precautions and protocols contact and droplet isolation Continue dexamethasone Patient is hypoxic today requiring 2 to 3 L of nasal cannula oxygen Patient is candidate for remdesivir ID started remdesivir per protocol, Home oxygen evaluation at discharge Follow inflammatory markers --Pneumonia due to COVID-19 Continue empiric antibiotics For unknown reason procalcitonin levels ordered but not done Will reorder today, If normal limits, DC antibiotics Follow cultures, ID following Home O2 evaluation --DVT prophylaxis-Lovenox --Ongoing tobacco use; smoking cessation counseling Recommend nicotine patch if needed We will closely monitor patient and adjust management as needed Plan of care will be reviewed with the patient and his nurse Disposition -follow repeat CT abdomen to monitor ileus Follow inflammatory markers, home O2 evaluation Discharge if patient is stable and work-up is negative Brief history 30-year-old male patient was admitted through the emergency r with intractable nausea vomiting with associated abdominal pain. Patient was COVID-19 positive less than a week ago. Upon arrival in the emergency room patient was said to have had a near syncopal episode but subsequently became more alert and oriented. He however was mildly hypoxic with oxygen saturation of 91% on room air upon arrival. Work-up in the emergency room, findings on CT angiogram of the chest was compatible with viral pneumonia. Patient admitted for COVID-19 pneumonia. Hospital course 01/29. Complains of nausea. Started him on zofran. His abdominal xray shows mild ileus. Electrolytes are ok. He is on antibiotics and steroids for COVID-19 PNA. 01/30; patient is hypoxemic requiring 2 to 3 L of nasal cannula oxygen, due to hypoxia, ID recommended remdesivir per protocol Try to wean off nasal cannula oxygen, home oxygen evaluation at discharge History Interval history: I have seen and examined the patient at the bedside Patient's chart and medications reviewed I followed strict isolation precautions, PPE protocols per COVID-19 guidelines Throughout my interaction and evaluation of the patient today Patient feels slightly better requiring 2 to 3 L of nasal cannula oxygen Alert and awake no new complaints Vital signs reviewed Hospitalist Physical - Constitutional Vitals: Temp Pulse Resp BP Pulse Ox 97.7 F 91 H 20 106/70 96 01/30/21 04:35 01/29/21 21:09 01/30/21 04:35 01/30/21 04:35 01/30/21 05:44 General appearance: Present: no acute distress, well-nourished - EENT Eyes: Present: PERRL, EOM intact - Neck Neck: Present: supple, normal ROM - Respiratory Respiratory effort: normal Respiratory: bilateral: diminished, negative: rales, rhonchi, wheezing - Cardiovascular Rhythm: regular Heart Sounds: Present: S1 & S2 - Extremities Extremities: no ischemia, No edema - Abdominal General gastrointestinal: soft, non-tender, non-distended, normal bowel sounds - Integumentary Integumentary: Present: clear, warm - Psychiatric Psychiatric: appropriate mood/affect, cooperative - Neurologic Neurologic: CNII-XII intact, moves all extremities HEART Score - HEART Score Troponin: Troponin T < 0.010 ng/mL (0.00-0.029) 01/29/21 01:15 Results - Labs CBC & Chem 7: 01/30/21 07:10 01/30/21 07:10 Labs: Laboratory Last Values WBC 5.4 K/mm3 (4.5-11.0) 01/30/21 07:10 RBC 5.42 M/mm3 (3.65-5.03) H 01/30/21 07:10 Hgb 15.1 gm/dl (11.8-15.2) 01/30/21 07:10 Hct 44.3 % (35.5-45.6) 01/30/21 07:10 MCV 82 fl (84-94) L 01/30/21 07:10 MCH 28 pg (28-32) 01/30/21 07:10 MCHC 34 % (32-34) 01/30/21 07:10 RDW 15.1 % (13.2-15.2) 01/30/21 07:10 Plt Count 288 K/mm3 (140-440) 01/30/21 07:10 Lymph % (Auto) 14.4 % (13.4-35.0) 01/30/21 07:10 [place] % (Auto) 7.7 % (0.0-7.3) H 01/30/21 07:10 Eos % (Auto) 0.0 % (0.0-4.3) 01/30/21 07:10 Baso % (Auto) 0.1 % (0.0-1.8) 01/30/21 07:10 Lymph # (Auto) 0.8 K/mm3 (1.2-5.4) L 01/30/21 07:10 [place] # (Auto) 0.4 K/mm3 (0.0-0.8) 01/30/21 07:10 Eos # (Auto) 0.0 K/mm3 (0.0-0.4) 01/30/21 07:10 Baso # (Auto) 0.0 K/mm3 (0.0-0.1) 01/30/21 07:10 Seg Neutrophils % 77.8 % (40.0-70.0) H 01/30/21 07:10 Seg Neutrophils # 4.2 K/mm3 (1.8-7.7) 01/30/21 07:10 PT 12.7 Sec. (12.2-14.9) 01/30/21 07:10 INR 0.96 (0.87-1.13) 01/30/21 07:10 D-Dimer 135.00 ng/mlDDU (0-234) 01/29/21 00:09 Sodium 137 mmol/L (137-145) 01/30/21 07:10 Potassium 3.9 mmol/L (3.6-5.0) 01/28/21 22:26 Chloride 96.5 mmol/L (98-107) L 01/30/21 07:10 Carbon Dioxide 31 mmol/L (22-30) H 01/30/21 07:10 Anion Gap 14 mmol/L 01/30/21 07:10 BUN 13 mg/dL (9-20) 01/30/21 07:10 Creatinine 0.9 mg/dL (0.8-1.3) 01/30/21 07:10 Estimated GFR > 60 ml/min 01/30/21 07:10 BUN/Creatinine Ratio 14 % 01/30/21 07:10 Glucose 132 mg/dL (75-100) H 01/30/21 07:10 Calcium 9.0 mg/dL (8.4-10.2) 01/30/21 07:10 Ferritin 809.3 ng/mL (30.0-300.0) H 01/29/21 00:09 Total Bilirubin 0.30 mg/dL (0.1-1.2) 01/28/21 22:26 AST 24 units/L (5-40) 01/28/21 22:26 ALT 23 units/L (7-56) 01/28/21 22:26 Alkaline Phosphatase 84 units/L (35-129) 01/28/21 22:26 Lactate Dehydrogenase 351 units/L (91-180) H 01/29/21 00:09 Troponin T < 0.010 ng/mL (0.00-0.029) 01/29/21 01:15 C-Reactive Protein 3.40 mg/dL (0.00-1.30) H 01/29/21 00:09 Total Protein 7.1 g/dL (6.3-8.2) 01/28/21 22:26 Albumin 3.8 g/dL (3.9-5) L 01/28/21 22:26 Albumin/Globulin Ratio 1.2 % 01/28/21 22:26 Lipase 14 units/L (13-60) 01/28/21 22:26 Urine Color Yellow (Yellow) 01/29/21 01:30 Urine Turbidity Clear (Clear) 01/29/21 01:30 Urine pH 6.0 (5.0-7.0) 01/29/21 01:30 Ur Specific [place] 1.034 (1.003-1.030) H 01/29/21 01:30 Urine Protein 30 mg/dl mg/dL (Negative) 01/29/21 01:30 Urine Glucose (UA) Neg mg/dL (Negative) 01/29/21 01:30 Urine Ketones Tr mg/dL (Negative) 01/29/21 01:30 Urine Blood Neg (Negative) 01/29/21 01:30 Urine Nitrite Neg (Negative) 01/29/21 01:30 Urine Bilirubin Neg (Negative) 01/29/21 01:30 Urine Urobilinogen < 2.0 mg/dL (<2.0) 01/29/21 01:30 Ur Leukocyte Esterase Neg (Negative) 01/29/21 01:30 Urine WBC (Auto) 1.0 /HPF (0.0-6.0) 01/29/21 01:30 Urine RBC (Auto) 1.0 /HPF (0.0-6.0) 01/29/21 01:30 Urine Mucus 2+ /HPF 01/29/21 01:30 Coronavirus (PCR) Positive (Negative) A 01/29/21 Unknown Hendrix/IV: Voiding Method Toilet Active Medications - Current Medications Current Medications: Generic Name Dose Route Start Last Admin Trade Name Freq PRN Reason Stop Dose Admin Acetaminophen 650 mg 01/29/21 01:53 Acetaminophen 325 Mg Tab PO Q4H PRN Pain MILD(1-3)/Fever >100.5/BECKER Albuterol 2.5 mg 01/29/21 16:46 Albuterol 2.5 Mg/3 Ml Nebu IH Q4HRT PRN Shortness Of Breath Benzonatate 100 mg 01/29/21 20:34 01/29/21 20:49 Benzonatate 100 Mg Cap PO 100 mg Q8HR PRN Administration cough Dexamethasone 6 mg 01/30/21 10:00 Dexamethasone 4 Mg Tab PO 02/07/21 10:01 DAILY TAMMY Enoxaparin Sodium 40 mg 01/29/21 22:00 01/29/21 22:09 Enoxaparin 40 Mg/0.4 Ml Inj SUB-Q 40 mg QDAY@2200 TAMMY Administration Protocol Ceftriaxone Sodium 2 gm in 100 mls @ 200 mls/hr 01/29/21 22:00 01/29/21 22:09 Rocephin/Ns 2 Gm/100 Ml IV 200 mls/hr Q24H TAMMY Administration Protocol Azithromycin 500 mg in 250 mls @ 250 mls/hr 01/29/21 22:00 01/29/21 22:10 Zithromax/Ns IV 02/01/21 22:59 250 mls/hr Q24H TAMMY Administration Protocol Magnesium Hydroxide 30 ml 01/29/21 01:53 Magnesium Hydroxide (Mom) Oral Liqd Udc PO Q4H PRN Constipation Ondansetron HCl 4 mg 01/29/21 01:53 01/29/21 18:40 Ondansetron 4 Mg/2 Ml Inj IV 4 mg Q8H PRN Administration Nausea And Vomiting Oxycodone/Acetaminophen 1 tab 01/29/21 20:32 01/29/21 20:48 Oxycodone /Acetaminophen 5-325mg Tab PO 1 tab Q4H PRN Administration Pain, Moderate (4-6) Sodium Chloride 10 ml 01/29/21 10:00 01/29/21 22:10 Sodium Chloride 0.9% 10 Ml Flush Syringe IV 10 ml BID TAMMY Administration Sodium Chloride 10 ml 01/29/21 01:53 01/29/21 22:11 Sodium Chloride 0.9% 10 Ml Flush Syringe IV 10 ml PRN PRN Administration LINE FLUSH
--- NOTE | 2021-01-30 08:41 | XRay Report ---
ABDOMEN 1 VIEW 01/30/2021 7:22 AM INDICATION / CLINICAL INFORMATION: reevaluate ileus. COMPARISON: None available. FINDINGS: TUBES / LINES: None. BOWEL GAS PATTERN: No significant abnormality. FREE AIR / EXTRALUMINAL GAS: None. ADDITIONAL FINDINGS: No significant additional findings. IMPRESSION: 1. No significant abnormality. Signer Name: Javy Hawkins MD Signed: 01/30/2021 8:36 AM Workstation Name: [id number]
[2021-01-30] MEDS: DEXAMETHASONE 4 MG TAB PO SCH (09:23)
--- NOTE | 2021-01-30 10:45 | Electrocardiograph Report ---
[facility] Test Date: 2021-01-28 Test Time: 22:50:28 Pat Name: PABLITO EDUARDO Department: Room: A366 1 Gender: M Veterinary Surgery Technician: THIAGO : 1960 Requested By: JOSE ACOSTA Order Number: [id number] Reading MD: Peace Cochran Measurements Intervals [place] Rate: 89 P: 55 NV: 154 QRS: 6 QRSD: 76 T: 23 QT: 351 QTc: 427 Interpretive Statements Sinus rhythm Probable left atrial enlargement No previous ECG available for comparison Electronically Signed On 01-30-2021 10:45:00 EDT by Peace Cochran
--- NOTE | 2021-01-30 11:14 | Progress Note ---
Assessment and Plan Cultures: SARS CoV2 PCR: Positive A/P: 60/M with: #Bilateral pneumonia: Secondary to COVID-19. Inflammatory markers moderately elevated. #Acute hypoxic respiratory failure: Secondary to COVID-19. #Nausea, vomiting: Likely secondary to COVID-19. CT abdomen and pelvis was unremarkable for acute process. Recs: -Now hypoxic, will initiate remdesivir, d/w Dr. Marcano -continue steroids x 10 days -Follow-up procalcitonin, if normal, can discontinue antibiotics -prophylactic anticoagulation based on d-dimer per hospital protocol -trend ferritin, LDH, d-dimer, CRP every 2-3 days for risk stratification and to assess disease progression Abdias Costello MD, FACP [facility] ([facility] O: [phone] F: [phone] Subjective Date of service: 01/30/21 Interval history: Afebrile. Not hypoxic requiring 2 L nasal cannula. Objective - Exam Narrative Exam: Physical Exam (reviewed in chart to minimize risk of transmission) Constitutional: deferred Head, Ears, Nose: deferred Eyes: deferred Neck: deferred Oral: deferred Cardiovascular: deferred Respiratory: deferred GI: deferred Musculoskeletal: deferred Skin: deferred Hem/Lymphatic: deferred Psych: deferred Neurological: deferred - Constitutional Vitals: Vital Signs Temp Pulse Resp BP Pulse Ox 97.7 F 91 H 20 106/70 96 01/30/21 04:35 01/29/21 21:09 01/30/21 04:35 01/30/21 04:35 01/30/21 05:44 Temperature -Last 24 Hours Temperature 97.7 F Temperature 99.6 F Temperature 98.8 F - Labs CBC & Chem 7: 01/30/21 07:10 01/30/21 07:10 Labs: Abnormal lab results 01/29/21 01/30/21 01/30/21 Range/Units Unknown 07:10 07:10 RBC 5.42 H (3.65-5.03) M/mm3 MCV 82 L (84-94) fl [place] % (Auto) 7.7 H (0.0-7.3) % Lymph # (Auto) 0.8 L (1.2-5.4) K/mm3 Seg Neutrophils % 77.8 H (40.0-70.0) % Chloride 96.5 L (98-107) mmol/L Carbon Dioxide 31 H (22-30) mmol/L Glucose 132 H (75-100) mg/dL Coronavirus (PCR) Positive A (Negative)
[2021-01-30] MEDS ORDERED: REMDESIVIR 100 MG VIAL IV ONE (13:00)
[2021-01-30] MEDS ORDERED: REMDESIVIR 200 MG in SODIUM CHLORIDE 0.9% 250ML 250 ML IV ONE (13:00)
[2021-01-30] MEDS ORDERED: SODIUM CHLORIDE 0.9% 50 ML IVPB IV SCH (13:30)
[2021-01-30] MEDS: ONDANSETRON 4 MG/2 ML INJ IV PRN (21:23)
[2021-01-30] MEDS: BENZONATATE 100 MG CAP PO PRN (21:23)
[2021-01-30] MEDS: ENOXAPARIN 40 MG/0.4 ML INJ SUB-Q SCH (21:23)
[2021-01-30] MEDS: cefTRIAXone/NS 2 GM/100 ML 2 GM/100 ML BAG IV SCH (21:24)
[2021-01-30] MEDS: AZITHROMYCIN/NS 500 MG/250 ML 500 MG/250 ML BAG IV SCH (22:06)
[2021-01-31] MEDS: oxyCODONE /ACETAMINOPHEN 5-325MG TAB PO PRN (00:30)
[2021-01-31 06:52] VITALS: BP 117/72
[2021-01-31 07:24] LABS: Alanine Aminotransferase 15 units/L (7-56); Albumin 3.4 g/dL (3.9-5); BUN/Creatinine Ratio 19; Blood Urea Nitrogen 17 mg/dL (9-20); Calcium 8.5 mg/dL (8.4-10.2); Hemolysis Index 4
--- NOTE | 2021-01-31 07:50 | Progress Note ---
Assessment and Plan Assessment and plan: 60-year-old male patient was admitted through the emergency r with intractable nausea vomiting with associated abdominal pain. Patient was COVID-19 positive less than a week ago. Upon arrival in the emergency room patient was said to have had a near syncopal episode but subsequently became more alert and oriented. He however was mildly hypoxic with oxygen saturation of 91% on room air upon arrival. Work-up in the emergency room, findings on CT angiogram of the chest was compatible with viral pneumonia. Patient admitted for COVID-19 pneumonia. Hospital course 01/29. Complains of nausea. Started him on zofran. His abdominal xray shows mild ileus. Electrolytes are ok. He is on antibiotics and steroids for COVID-19 PNA. 01/30; patient is hypoxemic requiring 2 to 3 L of nasal cannula oxygen, due to hypoxia, ID recommended remdesivir per protocol Try to wean off nasal cannula oxygen, home oxygen evaluation at discharge 01/31: Will continue Remdesivir that was started yesterday, will perform Home oxygen evaluation in the AM. Continue supportive care. COVID-19 positive for 01/29/2021 --Intractable nausea and vomiting Likely from viral infection Antiemetics IV fluids and Protonix 01/28/2021 CT abdomen and pelvis negative for any inflammatory changes but shows possible ileus. Rpt abdominal xray today, no acute abnormalities Continue supportive care, diastolic --Ileus on CT abdomen and pelvis; Probably the cause of nausea vomiting follow-up x-ray abdomen and pelvis negative for acute abnormality According to original plans patient may have been discharged today However patient is hypoxic requiring remdesivir which was started today by ID --COVID-19 infection; Follow COVID-19 precautions and protocols contact and droplet isolation Continue dexamethasone Patient is hypoxic today requiring 2 to 3 L of nasal cannula oxygen Patient is candidate for remdesivir ID started remdesivir per protocol, Home oxygen evaluation at discharge Follow inflammatory markers --Pneumonia due to COVID-19 Continue empiric antibiotics For unknown reason procalcitonin levels ordered but not done Will reorder today, If normal limits, DC antibiotics Follow cultures, ID following Home O2 evaluation --DVT prophylaxis-Lovenox --Ongoing tobacco use; smoking cessation counseling Recommend nicotine patch if needed We will closely monitor patient and adjust management as needed Plan of care will be reviewed with the patient and his nurse Disposition -follow repeat CT abdomen to monitor ileus Follow inflammatory markers, home O2 evaluation Discharge if patient is stable and work-up is negative History Interval history: I have seen and examined the patient at the bedside Patient's chart and medications reviewed I followed strict isolation precautions, PPE protocols per COVID-19 guidelines Throughout my interaction and evaluation of the patient today Patient feels slightly better requiring 2 to 3 L of nasal cannula oxygen Alert and awake no new complaints Vital signs reviewed Hospitalist Physical - Constitutional Vitals: Temp Pulse Resp BP Pulse Ox 98.5 F 59 L 16 117/72 97 01/31/21 05:17 01/31/21 05:17 01/31/21 05:17 01/31/21 05:17 01/31/21 05:17 General appearance: Present: no acute distress, well-nourished HEART Score - HEART Score Troponin: Troponin T < 0.010 ng/mL (0.00-0.029) 01/29/21 01:15 Results - Labs CBC & Chem 7: 01/30/21 07:10 01/31/21 06:30 Labs: Laboratory Last Values WBC 5.4 K/mm3 (4.5-11.0) 01/30/21 07:10 RBC 5.42 M/mm3 (3.65-5.03) H 01/30/21 07:10 Hgb 15.1 gm/dl (11.8-15.2) 01/30/21 07:10 Hct 44.3 % (35.5-45.6) 01/30/21 07:10 MCV 82 fl (84-94) L 01/30/21 07:10 MCH 28 pg (28-32) 01/30/21 07:10 MCHC 34 % (32-34) 01/30/21 07:10 RDW 15.1 % (13.2-15.2) 01/30/21 07:10 Plt Count 288 K/mm3 (140-440) 01/30/21 07:10 Lymph % (Auto) 14.4 % (13.4-35.0) 01/30/21 07:10 [place] % (Auto) 7.7 % (0.0-7.3) H 01/30/21 07:10 Eos % (Auto) 0.0 % (0.0-4.3) 01/30/21 07:10 Baso % (Auto) 0.1 % (0.0-1.8) 01/30/21 07:10 Lymph # (Auto) 0.8 K/mm3 (1.2-5.4) L 01/30/21 07:10 [place] # (Auto) 0.4 K/mm3 (0.0-0.8) 01/30/21 07:10 Eos # (Auto) 0.0 K/mm3 (0.0-0.4) 01/30/21 07:10 Baso # (Auto) 0.0 K/mm3 (0.0-0.1) 01/30/21 07:10 Seg Neutrophils % 77.8 % (40.0-70.0) H 01/30/21 07:10 Seg Neutrophils # 4.2 K/mm3 (1.8-7.7) 01/30/21 07:10 PT 12.7 Sec. (12.2-14.9) 01/30/21 07:10 INR 0.96 (0.87-1.13) 01/30/21 07:10 D-Dimer 135.00 ng/mlDDU (0-234) 01/29/21 00:09 Sodium 137 mmol/L (137-145) 01/31/21 06:30 Potassium 4.1 mmol/L (3.6-5.0) 01/31/21 06:30 Chloride 99.5 mmol/L (98-107) 01/31/21 06:30 Carbon Dioxide 30 mmol/L (22-30) 01/31/21 06:30 Anion Gap 12 mmol/L 01/31/21 06:30 BUN 17 mg/dL (9-20) 01/31/21 06:30 Creatinine 0.9 mg/dL (0.8-1.3) 01/31/21 06:30 Estimated GFR > 60 ml/min 01/31/21 06:30 BUN/Creatinine Ratio 19 % 01/31/21 06:30 Glucose 99 mg/dL (75-100) 01/31/21 06:30 Calcium 8.5 mg/dL (8.4-10.2) 01/31/21 06:30 Ferritin 809.3 ng/mL (30.0-300.0) H 01/29/21 00:09 Total Bilirubin 0.20 mg/dL (0.1-1.2) 01/31/21 06:30 AST 15 units/L (5-40) 01/31/21 06:30 ALT 15 units/L (7-56) 01/31/21 06:30 Alkaline Phosphatase 75 units/L (35-129) 01/31/21 06:30 Lactate Dehydrogenase 351 units/L (91-180) H 01/29/21 00:09 Troponin T < 0.010 ng/mL (0.00-0.029) 01/29/21 01:15 C-Reactive Protein 3.40 mg/dL (0.00-1.30) H 01/29/21 00:09 Total Protein 6.3 g/dL (6.3-8.2) 01/31/21 06:30 Albumin 3.4 g/dL (3.9-5) L 01/31/21 06:30 Albumin/Globulin Ratio 1.2 % 01/31/21 06:30 Lipase 14 units/L (13-60) 01/28/21 22:26 Urine Color Yellow (Yellow) 01/29/21 01:30 Urine Turbidity Clear (Clear) 01/29/21 01:30 Urine pH 6.0 (5.0-7.0) 01/29/21 01:30 Ur Specific [place] 1.034 (1.003-1.030) H 01/29/21 01:30 Urine Protein 30 mg/dl mg/dL (Negative) 01/29/21 01:30 Urine Glucose (UA) Neg mg/dL (Negative) 01/29/21 01:30 Urine Ketones Tr mg/dL (Negative) 01/29/21 01:30 Urine Blood Neg (Negative) 01/29/21 01:30 Urine Nitrite Neg (Negative) 01/29/21 01:30 Urine Bilirubin Neg (Negative) 01/29/21 01:30 Urine Urobilinogen < 2.0 mg/dL (<2.0) 01/29/21 01:30 Ur Leukocyte Esterase Neg (Negative) 01/29/21 01:30 Urine WBC (Auto) 1.0 /HPF (0.0-6.0) 01/29/21 01:30 Urine RBC (Auto) 1.0 /HPF (0.0-6.0) 01/29/21 01:30 Urine Mucus 2+ /HPF 01/29/21 01:30 Coronavirus (PCR) Positive (Negative) A 01/29/21 Unknown Hendrix/IV: Voiding Method Toilet Active Medications - Current Medications Current Medications: Generic Name Dose Route Start Last Admin Trade Name Freq PRN Reason Stop Dose Admin Acetaminophen 650 mg 01/29/21 01:53 Acetaminophen 325 Mg Tab PO Q4H PRN Pain MILD(1-3)/Fever >100.5/BECKER Albuterol 2.5 mg 01/29/21 16:46 Albuterol 2.5 Mg/3 Ml Nebu IH Q4HRT PRN Shortness Of Breath Benzonatate 100 mg 01/29/21 20:34 01/30/21 21:23 Benzonatate 100 Mg Cap PO 100 mg Q8HR PRN Administration cough Dexamethasone 6 mg 01/30/21 10:00 01/30/21 09:23 Dexamethasone 4 Mg Tab PO 02/07/21 10:01 6 mg DAILY TAMMY Administration Enoxaparin Sodium 40 mg 01/29/21 22:00 01/30/21 21:23 Enoxaparin 40 Mg/0.4 Ml Inj SUB-Q 40 mg QDAY@2200 TAMMY Administration Protocol Ceftriaxone Sodium 2 gm in 100 mls @ 200 mls/hr 01/29/21 22:00 01/30/21 21:24 Rocephin/Ns 2 Gm/100 Ml IV 200 mls/hr Q24H TAMMY Administration Protocol Azithromycin 500 mg in 250 mls @ 250 mls/hr 01/29/21 22:00 01/30/21 22:06 Zithromax/Ns IV 02/01/21 22:59 250 mls/hr Q24H TAMMY Administration Protocol REMDESIVIR 100 mg/ Sodium 250 mls @ 500 mls/hr 01/31/21 21:00 Chloride IV 02/03/21 21:29 Q24HR@2100 TAMMY Magnesium Hydroxide 30 ml 01/29/21 01:53 Magnesium Hydroxide (Mom) Oral Liqd Udc PO Q4H PRN Constipation Ondansetron HCl 4 mg 01/29/21 01:53 01/30/21 21:23 Ondansetron 4 Mg/2 Ml Inj IV 4 mg Q8H PRN Administration Nausea And Vomiting Oxycodone/Acetaminophen 1 tab 01/29/21 20:32 01/31/21 00:30 Oxycodone /Acetaminophen 5-325mg Tab PO 1 tab Q4H PRN Administration Pain, Moderate (4-6) Sodium Chloride 10 ml 01/29/21 10:00 01/30/21 21:24 Sodium Chloride 0.9% 10 Ml Flush Syringe IV 10 ml BID TAMMY Administration Sodium Chloride 10 ml 01/29/21 01:53 01/29/21 22:11 Sodium Chloride 0.9% 10 Ml Flush Syringe IV 10 ml PRN PRN Administration LINE FLUSH Sodium Chloride 50 ml 01/30/21 13:30 01/30/21 16:23 Sodium Chloride 0.9% 50 Ml Ivpb IV 02/03/21 21:01 50 ml Q24HR@2100 TAMMY Administration
[2021-01-31] MEDS: DEXAMETHASONE 4 MG TAB PO SCH (11:02)
--- NOTE | 2021-01-31 11:14 | Discharge Summary ---
Providers - Providers Date of Admission: 01/29/21 01:35 Attending physician: DIOGENES TRISTAN MD 01/29/21 01:53 Consult to Physician [CONS] Routine Comment: Consulting Provider: KIRSTEN BONILLA Physician Instructions: Reason For Exam: Pneumonia, Covid-19 Positive Primary care physician: PRACTICE ASSISTANT Hospitalization Reason for admission: Nausea vomiting Condition: Stable Hospital course: 60-year-old male patient was admitted through the emergency r with intractable nausea vomiting with associated abdominal pain. Patient was COVID-19 positive less than a week ago. Upon arrival in the emergency room patient was said to have had a near syncopal episode but subsequently became more alert and oriented. He however was mildly hypoxic with oxygen saturation of 91% on room air upon arrival. Work-up in the emergency room, findings on CT angiogram of the chest was compatible with viral pneumonia. Patient admitted for COVID-19 pneumonia. Hospital course 01/29. Complains of nausea. Started him on zofran. His abdominal xray shows mild ileus. Electrolytes are ok. He is on antibiotics and steroids for COVID-19 PNA. 01/30; patient is hypoxemic requiring 2 to 3 L of nasal cannula oxygen, due to hypoxia, ID recommended remdesivir per protocol Try to wean off nasal cannula oxygen, home oxygen evaluation at discharge 01/31: This morning patient doing very well has been ambulating walking around. No shortness of breath. O2 home eval pending. Will discharge home as patient is 95% on room air following rigorous ambulation in the room. No further nausea vomiting or diarrhea noted. Given extensive counseling on management outpatient patient verbalized understanding COVID-19 positive for 01/29/2021 --Intractable nausea and vomiting Likely from viral infection Antiemetics IV fluids and Protonix 01/28/2021 CT abdomen and pelvis negative for any inflammatory changes but shows possible ileus. Rpt abdominal xray today, no acute abnormalities Continue supportive care, diastolic --Ileus on CT abdomen and pelvis; Probably the cause of nausea vomiting follow-up x-ray abdomen and pelvis negative for acute abnormality According to original plans patient may have been discharged today However patient is hypoxic requiring remdesivir which was started today by ID --COVID-19 infection; Follow COVID-19 precautions and protocols contact and droplet isolation Continue dexamethasone Patient is hypoxic today requiring 2 to 3 L of nasal cannula oxygen Patient is candidate for remdesivir ID started remdesivir per protocol, Home oxygen evaluation at discharge Follow inflammatory markers --Pneumonia due to COVID-19 Continue empiric antibiotics For unknown reason procalcitonin levels ordered but not done Will reorder today, If normal limits, DC antibiotics Follow cultures, ID following Home O2 evaluation --DVT prophylaxis-Lovenox --Ongoing tobacco use; smoking cessation counseling Recommend nicotine patch if needed We will closely monitor patient and adjust management as needed Plan of care will be reviewed with the patient and his nurse Disposition: DC-01 TO HOME OR SELFCARE Final Discharge Diagnosis (Prints w/discharge instructions): . COVID-19 positive test (U07.1, COVID-19) with Acute Pneumonia (J12.89, Other viral pneumonia) Time spent for discharge: 35 minutes Core Measure Documentation - Palliative Care Palliative Care/ Comfort Measures: Not Applicable - Core Measures Any of the following diagnoses?: none Exam - Physical Exam Narrative exam: VITAL SIGNS: Reviewed. GENERAL: The patient appears normally developed, Vital signs as documented. HEAD: No signs of head trauma. EYES: Pupils are equal. Extraocular motions intact. EARS: Hearing grossly intact. MOUTH: Oropharynx is normal. NECK: No adenopathy, no JVD. CHEST: Chest with clear breath sounds bilaterally. No wheezes, rales, or rhonchi. CARDIAC: Regular rate and rhythm. S1 and S2, without murmurs, gallops, or rubs. VASCULAR: No Edema. Peripheral pulses normal and equal in all extremities. ABDOMEN: Soft, non tender and non distended. No rebound or guarding, and no masses palpated. Bowel Sounds normal. MUSCULOSKELETAL: Good range of motion of all major joints. Extremities without clubbing, cyanosis or edema. NEUROLOGIC EXAM: Alert and oriented x 3 No focal sensory or strength deficits. Speech normal. Follows commands. PSYCHIATRIC: Mood normal. SKIN: detail exam as documented in skin assessment - Constitutional Vitals: Temp Pulse Resp BP Pulse Ox 98.5 F 59 L 16 117/72 97 01/31/21 05:17 01/31/21 05:17 01/31/21 05:17 01/31/21 05:17 01/31/21 05:17 Plan Activity: advance as tolerated, fall precautions Diet: low fat Special Instructions: smoking cessation Additional Instructions: Counseling given to the patient preventive measures and also isolation precautions to follow he verbalized understanding. Follow up with: PRIMARY CAREMD [Primary Care Provider] - 7 Days SHERMAN BROWN MD [Staff Physician] - 7 Days Prescriptions: Dexamethasone 6 mg PO DAILY #8 tablet Benzonatate [Tessalon Perles] 100 mg PO Q8HR PRN #14 capsule PRN Reason: cough Ascorbic Acid [Vitamin C] 0 mg PO BID #60 tablet Cholecalciferol (Vitamin D3) [Vitamin D3] 5,000 unit PO DAILY #30 tablet Zinc Sulfate 220 mg PO DAILY #30 capsule
[2021-01-31] MEDS ORDERED: REMDESIVIR 100 MG in SODIUM CHLORIDE 0.9% 250ML 250 ML IV SCH (21:00)
== END 2021-01-31 16:08 | disposition home or self-care (01) | DRG 177 ==
LOC: ED 21:40 → 3A 01-29 01:35 → OBSVTOIN 01-29 01:35 → 3A 01-29 06:34
PROVIDERS: ADMIT Internal Medicine Geriatric Medicine; ATTEND Internal Medicine
PROC: XW033E5 Introduction of Remdesivir Anti-infective into Peripheral Vein, Percutaneous Approach, New Technology Group 5 (ICD-10-PCS; principal; 2021-01-30)
DX: U07.1 COVID-19 (principal); J12.82 Pneumonia due to coronavirus disease 2019; J96.01 Acute respiratory failure with hypoxia; K56.7 Ileus, unspecified; F17.200 Nicotine dependence, unspecified, uncomplicated; Z71.6 Tobacco abuse counseling
CPT/HCPCS: 36415; 71275; 74018; 74022; 74177; 80048; 80053; 81001; 82728; 83615; 83690; 84145; 84484; 85025; 85379; 85610; 86140; 93005; 96365; 96375; G0378; J0456; J0696; J1100; J1650; J2405; J7030; J8540; Q9967; U0003